=== PATIENT | female | born 1975 | race Caucasian/White ===

== ENCOUNTER 2016-08-03 13:48 | Emergency (ER) | payer MEDICAID ==
[~2016-08-03] VITALS: Wt 74.0 kg
[~2016-08-03 13:48] MED LIST: FERR140T2 PO; PNV1TABL43 PO
[2016-08-03 16:01] LABS: ADD SCAN DIFF NO
[2016-08-03 16:06] LABS: BASOPHILS % 0.3 % (0.0-2.0); EOSINOPHILS # 0.1 10^3/ul (0.0-0.5); EOSINOPHILS % 1.2 % (0.0-7.0); HEMATOCRIT 39.2 % (37.0-47.0); HEMOGLOBIN 13.4 g/dl (12.0-16.0); LYMPHOCYTES # 2.8 10^3/ul (0.8-2.9); LYMPHOCYTES % 29.2 % (15.0-51.0); MEAN CORPUSCULAR HEMOGLOBIN 30.7 pg (29.0-33.0); MEAN CORPUSCULAR HGB CONC 34.2 g/dl (32.0-37.0); MEAN CORPUSCULAR VOLUME 89.9 fl (82.0-101.0); MEAN PLATELET VOLUME 8.7 fl (7.4-10.4); MONOCYTE # 0.9 10^3/ul (0.3-0.9); MONOCYTES % 9.2 % (0.0-11.0); NEUTROPHIL # 5.6 10^3/ul (1.6-7.5); NEUTROPHILS % 59.8 % (39.0-77.0); PLATELET COUNT 335 10^3/UL (140-415); RED BLOOD COUNT 4.36 10^6/ul (4.20-5.40); RED CELL DISTRIBUTION WIDTH 12.5 % (11.5-14.5); WHITE BLOOD COUNT 9.4 10^3/ul (4.8-10.8)
[2016-08-03 16:14] LABS: ALBUMIN 4.3 g/dl (3.3-4.9); POTASSIUM 3.6 mmol/L (3.5-5.1)
[2016-08-03 16:16] LABS: ADD UMIC YES; BILIRUBIN,INDIRECT 0.3 mg/dl (0-1.1); BILIRUBIN,TOTAL 0.3 mg/dl (0.2-1.3); CREATININE 0.6 mg/dl (0.44-1.00); URINE BILIRUBIN (Dip) NEGATIVE (NEGATIVE); URINE BLOOD (Dip) NEGATIVE (NEGATIVE); URINE COLOR LT. YELLOW (YELLOW); URINE GLUCOSE (Dip) NEGATIVE (NEGATIVE); URINE KETONES (Dip) NEGATIVE (NEGATIVE); URINE LEUKOCYTE ESTERASE (Dip) NEGATIVE (NEGATIVE); URINE NITRITE (Dip) POSITIVE (NEGATIVE); URINE TOTAL PROTEIN (Dip) NEGATIVE (NEGATIVE); URINE UROBILINOGEN (Dip) 0.2 E.U./dL (0.1-1.0)
[2016-08-03 16:17] LABS: ALBUMIN/GLOBULIN RATIO 1.26; CALCIUM 9.2 mg/dl (8.4-10.2); TOTAL PROTEIN 7.7 g/dl (6.1-8.1)
--- NOTE | 2016-08-03 16:54 | RADRPT ---
PROCEDURE: US OB. CLINICAL INDICATION: Pelvic pain. TECHNIQUE: Transabdominal and transvaginal views of the pelvis are available for review. COMPARISON: No prior studies are available for comparison. FINDINGS: A single live intrauterine is seen. The mean gestational sac diameter is 1.6 cm. The ges tational sac is in the body of the fundus. [place]-rump length:0.65 cm heart rate:130 beats per minute Ultrasound estimated gestational age: 6 weeks and 3 days Estimated date of delivery: 03/26/2017. No ovarian or adnexal mass lesion is seen. There is no free fluid. IMPRESSION: Single live intrauterine with an estimated gestational age of 6 weeks and 3 days. RPTAT: HPNM Physician Singh Date Time Electronically viewed and signed by Physician Singh on 08/03/2016 16:54 /
[2016-08-03 17:06] LABS: BACTERIA,URINE MANY
[2016-08-03 17:07] LABS: SQUAMOUS EPITHELIAL CELL,UR FEW; URINE RBCS 0-2 /HPF (0)
--- NOTE | 2016-08-03 17:09 | ERD ---
ER Documentation Chief Complaint Date/Time DATE: 08/03/16 TIME: 17:08 Chief Complaint SOB X1 DAY, FEELING TIRED, NO COUGH, NO PAIN REPORTED HPI This is a 40-year-old female who presents to the emergency department today complaining of shortness of breath that started yesterday and fatigue for the past couple of days. Patient states she has a complicated history in her last and was admitted to the hospital for 3 weeks. Patient is here with her and has been states she is very concerned that the same thing is going to happen to her. States she does not know many weeks she has but was seen at her clinic and was told that her baby is due in February. Denies any pain in her legs, fevers or chills, cough. Denies any vaginal bleeding,, abdominal pain dysuria. ROS All systems reviewed and are negative except as per history of present illness. Medications Home Meds Active Scripts Cephalexin* (Keflex*) 500 Mg Capsule, 500 MG PO QID for 7 Days, CAP Prov:EVIE THOMPSON PA-C 08/03/16 Reported Medications Ferrous Sulfate* (Ferrous Sulfate*) 140 Mg Tablet.er, 140 MG PO DAILY 08/11/13 Vit/Fe Fumarate/Fa* ( Vitamin Tablet*) 1 Tab Tablet, 1 TAB PO DAILY 08/11/13 Allergies Allergies: Coded Allergies: No Known Drug Allergy (Verified Allergy, Unknown, 08/03/16) PMhx/Soc Medical and Surgical Hx: pt denies Medical Hx History of Surgery: Yes (CSECTION) Anesthesia Reaction: No Hx Neurological Disorder: No Hx Respiratory Disorders: No Hx Cardiac Disorders: No Hx Psychiatric Problems: No Hx Miscellaneous Medical Probl: No Hx Alcohol Use: No Hx Substance Use: No Hx Tobacco Use: No Smoking Status: Never smoker Physical Exam Vitals Vital Signs Date Time Temp Pulse Resp B/P Pulse Ox O2 Delivery O2 Flow Rate FiO2 08/03/16 13:52 97.7 83 17 129/79 100 Physical Exam Const: No acute distress Head: Atraumatic Eyes: Normal Conjunctiva ENT: Normal External Ears, Nose and Mouth. Neck: Full range of motion..~ No meningismus. Resp: Clear to auscultation bilaterally. No absent breath sounds. No wheezing. Cardio: Regular rate and rhythm, no murmurs Abd: Soft, non tender, non distended. Normal bowel sounds Skin: No petechiae or rashes Back: No midline or flank tenderness Ext: No cyanosis, or edema. No erythema or warmth. No swelling. Nontender gastroc bilaterally Neur: Awake and alert Psych: Normal Mood and Affect Result Diagram: 08/03/16 1540 08/03/16 1540 Results 24 hrs Laboratory Tests Test 08/03/16 15:40 White Blood Count 9.410^3/ul Red Blood Count 4.3610^6/ul Hemoglobin 13.4g/dl Hematocrit 39.2% Mean Corpuscular Volume 89.9fl Mean Corpuscular Hemoglobin 30.7pg Mean Corpuscular Hemoglobin Concent 34.2g/dl Red Cell Distribution Width 12.5% Platelet Count 37221^3/UL Mean Platelet Volume 8.7fl Neutrophils % 59.8% Lymphocytes % 29.2% Monocytes % 9.2% Eosinophils % 1.2% Basophils % 0.3% Nucleated Red Blood Cells % 0.0/100WBC Neutrophils # 5.610^3/ul Lymphocytes # 2.810^3/ul Monocytes # 0.910^3/ul Eosinophils # 0.110^3/ul Basophils # 0.010^3/ul Nucleated Red Blood Cells # 0.010^3/ul Urine Color LT. YELLOW Urine Clarity CLEAR Urine pH 7.0 Urine Specific [place] 1.015 Urine Ketones NEGATIVE Urine Nitrite POSITIVE Urine Bilirubin NEGATIVE Urine Urobilinogen 0.2 E.U./dL Urine Leukocyte Esterase NEGATIVE Urine Microscopic RBC 0-2/HPF Urine Microscopic WBC 2-5/HPF Urine Squamous Epithelial Cells FEW Urine Bacteria MANY Urine Hemoglobin NEGATIVE Urine Glucose NEGATIVE% Urine Total Protein NEGATIVE Sodium Level 139mmol/L Potassium Level 3.6mmol/L Chloride Level 102mmol/L Carbon Dioxide Level 25mmol/L Anion Gap 16 Blood Urea Nitrogen 12mg/dl Creatinine 0.60mg/dl Glucose Level 82mg/dl Calcium Level 9.2mg/dl Total Bilirubin 0.3mg/dl Direct Bilirubin 0.00mg/dl Indirect Bilirubin 0.3mg/dl Aspartate Amino Transf (AST/SGOT) 21IU/L Alanine Aminotransferase (ALT/SGPT) 23IU/L Alkaline Phosphatase 57IU/L Total Protein 7.7g/dl Albumin 4.3g/dl Globulin 3.40g/dl Albumin/Globulin Ratio 1.26 Beta HCG, Quantitative 60981.0mIU/ml DIAGNOSTIC IMAGING REPORT Patient: RADHA ALLEN : 1975 Age: 40 Sex: F MR #: [id number] DOS: 08/03/16 1524 Ordering MD: EVIE THOMPSON PA-C Location: [facility] Room/Bed: PROCEDURE: US OB. CLINICAL INDICATION: Pelvic pain. TECHNIQUE: Transabdominal and transvaginal views of the pelvis are available for review. COMPARISON: No prior studies are available for comparison. FINDINGS: A single live intrauterine is seen. The mean gestational sac diameter is 1.6 cm. The gestational sac is in the body of the fundus. [place]-rump length: 0.65 cm heart rate: 130 beats per minute Ultrasound estimated gestational age: 6 weeks and 3 days Estimated date of delivery: 03/26/2017. No ovarian or adnexal mass lesion is seen. There is no free fluid. IMPRESSION: Single live intrauterine with an estimated gestational age of 6 weeks and 3 days. RPTAT: HPNM Physician Singh Date Time Electronically viewed and signed by Physician Singh on 08/03/2016 16 :54 / CC: EVIE THOMPSON PA-C Procedures/MDM This a 40-year-old female who presents the emergency department today complaining of fatigue and shortness of breath. Patient is approximately 6 weeks . 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 There was poor movement at that time and patient was 29 weeks with an IUP and had to have a for the demise as there was also oligohydramnios. Patient also had a hemoglobin of 5.1 and received several units of blood. Given the patient's complicated history and concern I did obtain a complete OB workup. Laboratory work shows no elevated white blood cell count. She is not anemic. Platelets are within normal limits. Electrolytes are within normal limits. Glucose is within normal limits. Liver function is within normal limits. UA shows negative leukocyte esterase [place] [address] Rh status O+ Postivie Ultrasound shows a single live intrauterine with an estimated gestational age of 6 weeks and 3 days. There is heart rate of 130 bpm. There is an estimated date of delivery of March 26, 2017. There are no ovarian or adnexal mass lesion seen. There is no free fluid. Patient is afebrile and otherwise well-appearing. She is not tachycardic. Her oxygen saturations 100%. Her respirations are 17. She has no calf pain or swelling in her legs or cough and I have low suspicion for DVT or PE. I do not feel the patient requires or would benefit from a chest x-ray or Doppler ultrasound at this time. Low suspicion for pneumonia, pleural effusion, abscess , pneumothorax. Patient has no vaginal bleeding and she has no abdominal pain on physical exam. Low suspicion for ectopic , tubal ovarian abscess, ovarian torsion, failed at this time. Patient has fatigue and shortness of breath of uncertain etiology. Patient is not anemic. Patient's blood pressure is 129/79. Her liver enzymes are normal. Low suspicion for HELLP syndrome or regnancy induced hypertension. Patient is only in her first trimester. Patient's fatigue may be related to an early normal . Patient also has a urinary tract infection. I have explained to the patient and her multiple times that there is nothing further that we will do here in the emergency department. I have explained to the patient that given her advanced maternal age and she is approaching age 41 during her and her history of complicated that she needs to be followed on a regular basis by an [facility] specialist. Patient indicated that she had an appointment at the end of the month. I have explained her that she should try to get this appointment moved up sooner. At this time the patient is stable for discharge and outpatient management. Patient should follow up with their PCP in the next 1-2 days. They may return to the emergency department sooner for any persistent or worsening of symptoms. Patient understood and agreed with the plan. Discussed the patient with Dr. Espinal and he is in agreement with the plan. Departure Diagnosis: Primary Impression: Fatigue during in first trimester Additional Impression: SOB (shortness of breath) Condition: Fair EVIE THOMPSON PA-C Aug 03, 2016 17:09
[2016-08-03] MEDS ORDERED: CEPH-443 PO (17:39)
== END 2016-08-03 17:50 | disposition home or self-care (01) ==
LOC: FTE 13:48
DX: O26.811 Pregnancy related exhaustion and fatigue, first trimester (principal); R06.02 Shortness of breath; R10.2 Pelvic and perineal pain; O99.89 Other specified diseases and conditions complicating pregnancy, childbirth and the puerperium; Z3A.01 Less than 8 weeks gestation of pregnancy
CPT/HCPCS: 36415; 76801; 80053; 81001; 81003; 84702; 85025; 86900; 86901